=== PATIENT | male | born 1945 | race Caucasian/White ===

== ENCOUNTER 2017-02-13 22:02 | Inpatient (IN) | payer MEDICARE ==
--- NOTE | 2017-02-13 23:59 | EDM.PDOC ---
ED HPI GENERAL MEDICAL PROBLEM - General Chief Complaint: Gastrointestinal Problem Stated Complaint: RECTAL BLEED Time Seen by Provider: 02/13/17 22:32 Source of Information: Reports: Patient History Limitations: Reports: No Limitations, Other (hard of hearing, not wearing hearing aides) - History of Present Illness INITIAL COMMENTS - FREE TEXT/NARRATIVE: Lower GI bleed; this is a 71 year old male present to ER via POV. He reports had a colonscopy on SaturdayFebruary 12 in [facility], had a pre-cancerous polyp removed. He had a breakfast this morning of a western omelet and pancakes, this afternoon had a sub-sandwich. He then drove from his home in the [facility] to the cabin, after arriving at the cabin, had two blood bowel movements. He reports toilet had a large amount of blood and chunks. He was worried came to ER for evaluation. In ER, rectal exam, gladys blood surrounding anus, no internal or external hemorrhoids are noted. no bowel movements while in ER Labs are stable, hemoglobin >15, vital signs are stable. advise to admit to OBS to monitor for any further bleeding. fecal occult stool positive Mr. Cabral declines any IV meds or fluids, or saline lock. Onset: Sudden Duration: Hour(s): Location: Reports: Generalized Quality: Reports: Other (bright red bleeding x 2 this evening.) Severity: Moderate Improves with: Reports: None Worsens with: Reports: None Context: Reports: Other (colonscopy on 02/12/2017) Associated Symptoms: Reports: Other (when had stools, felt weak and sweating, now symptoms have resolved.) denies pain Pain Score (Numeric/FACES): 0 - Related Data Allergies Allergy/AdvReac Type Severity Reaction Status Date / Time No Known Allergies Allergy Verified 02/13/17 22:23 Home Meds: Home Meds Aspirin [Adult Low Dose Aspirin EC] 81 mg PO ASDIRECTED 02/13/17 [History] Cholecalciferol (Vitamin D3) [Vitamin D] 5,000 unit PO DAILY 02/13/17 [History] L.acidoph,Paracasei, B.lactis [Probiotic] 1 each PO ASDIRECTED 02/13/17 [History ] atorvaSTATin [Lipitor] 10 mg PO ASDIRECTED 02/13/17 [History] Past Medical History HEENT History: Reports: Hard of Hearing Cardiovascular History: Reports: High Cholesterol Gastrointestinal History: Reports: Hemorrhoids, Inflammatory Bowel Disease Endocrine/Metabolic History: Reports: Diabetes, Type II Oncologic (Cancer) History: Reports: Malignant Melanoma, Other (See Below) Other Oncologic History: Colonoscopy 02/12/17 biopsy at junction of cecum for precancerous cells Dermatologic History: Reports: Melanoma - Past Surgical History GI Surgical History: Reports: Colonoscopy Social & Family History - Tobacco Use Smoking Status *Q: Never Smoker - Caffeine Use Caffeine Use: Reports: Coffee, Tea - Recreational Drug Use Recreational Drug Use: No ED ROS GENERAL - Review of Systems Review Of Systems: See Below Constitutional: Reports: No Symptoms HEENT: Reports: No Symptoms Respiratory: Reports: No Symptoms Cardiovascular: Reports: No Symptoms Endocrine: Reports: No Symptoms GI/Abdominal: Reports: Bloody Stool : Reports: No Symptoms Musculoskeletal: Reports: No Symptoms Skin: Reports: No Symptoms Neurological: Reports: No Symptoms Psychiatric: Reports: No Symptoms Hematologic/Lymphatic: Reports: No Symptoms Immunologic: Reports: No Symptoms ED EXAM, GI/ABD - Physical Exam Exam: See Below Exam Limited By: No Limitations General Appearance: Alert, WD/WN, No Apparent Distress Ears: Normal External Exam, Normal Canal, Hearing Grossly Normal, Normal TMs Nose: Normal Inspection, Normal Mucosa, No Blood Throat/Mouth: Normal Inspection, Normal Lips, Normal Teeth, Normal Gums, Normal Oropharynx, Normal Voice, No Airway Compromise Head: Atraumatic, Normocephalic Neck: Normal Inspection Respiratory/Chest: No Respiratory Distress, Lungs Clear Cardiovascular: Normal Peripheral Pulses, Regular Rate, Rhythm, No Edema, No Murmur GI/Abdominal: Normal Bowel Sounds, Soft, Non-Tender, No Distention (Male) Exam: No Hernia Rectal (Males) Exam: Normal Rectal Tone, Prostate Normal, Bloody Stool, Heme + Stool Back Exam: Normal Inspection, Full Range of Motion, NT Extremities: Normal Inspection, Normal Range of Motion, Non-Tender, Normal Capillary Refill, No Pedal Edema Neurological: Alert, Oriented, CN II-XII Intact, Normal Cognition, Normal Gait, Normal Reflexes, No Motor/Sensory Deficits Psychiatric: Normal Affect, Normal Mood Skin Exam: Warm, Dry, Intact, Normal Color, No Rash Lymphatic: No Adenopathy Course - Vital Signs Last Recorded V/S: Last Vital Signs Temp 36.5 C 06/08/17 00:44 Pulse 77 02/14/17 00:44 Resp 12 02/14/17 00:44 BP 126/50 L 02/14/17 00:44 Pulse Ox 96 02/14/17 00:44 - Orders/Labs/Meds Orders: Active Orders 24 hr Category Date Time Status Pantoprazole [ProTONIX] Med 02/13/17 23:45 Active 40 mg PO DAILY Medication Orders Acetaminophen (Tylenol) 650 mg PO Q4H PRN PRN Reason: analgesia/fever Magnesium Hydroxide (Milk Of Magnesia) 30 ml PO BID PRN PRN Reason: Constipation Ondansetron HCl (Zofran Odt) 4 mg PO Q6H PRN PRN Reason: Nausea able to take PO Oxycodone HCl (Oxycodone) 5 mg PO Q4H PRN PRN Reason: Pain (moderate 4-6) Pantoprazole Sodium (Protonix) 40 mg PO DAILY NAHED Last Admin: 02/14/17 00:01 Dose: 40 mg Zolpidem Tartrate (Ambien) 5 mg PO BEDTIME PRN PRN Reason: Sleep Labs: Laboratory Tests 02/13/17 02/13/17 02/13/17 Range/Units 23:15 23:30 23:30 WBC 15.4 H (4.5-11.0) K/uL RBC 5.04 (4.30-5.90) M/uL Hgb 14.7 (12.0-15.0) g/dL Hct 45.3 (40.0-54.0) % MCV 90 (80-98) fL MCH 29 (27-31) pg MCHC 33 (32-36) % Plt Count 228 (150-400) K/uL Neut % (Auto) 81 H (36-66) % Lymph % (Auto) 10 L (24-44) % Mifflin % (Auto) 7 H (2-6) % Eos % (Auto) 1 L (2-4) % Baso % (Auto) 0 (0-1) % PT 13.0 H (9.5-12.0) sec INR 1.21 H (0.80-1.20) Sodium 143 (140-148) mmol/L Potassium 4.2 (3.6-5.2) mmol/L Chloride 108 (100-108) mmol/L Carbon Dioxide 28 (21-32) mmol/L Anion Gap 7.0 (5.0-14.0) mmol/L BUN 19 H (7-18) mg/dL Creatinine 1.1 (0.8-1.3) mg/dL Est Cr Clr Drug Dosing 65.65 mL/min Estimated GFR (MDRD) > 60 (>60) Glucose 176 H (74-106) mg/dL Calcium 8.6 (8.5-10.1) mg/dL Total Bilirubin 0.7 (0.2-1.0) mg/dL AST 21 (15-37) U/L ALT 25 (12-78) U/L Alkaline Phosphatase 95 (46-116) U/L Total Protein 6.8 (6.4-8.2) g/dL Albumin 3.7 (3.4-5.0) g/dL Globulin 3.1 (2.3-3.5) g/dL Albumin/Globulin Ratio 1.2 (1.2-2.2) Meds: Medications Generic Name Dose Route Start Last Admin Trade Name Freq PRN Reason Stop Dose Admin Acetaminophen 650 mg 02/14/17 00:44 Tylenol PO Q4H PRN analgesia/fever Magnesium Hydroxide 30 ml 02/14/17 00:44 Milk Of Magnesia PO BID PRN Constipation Ondansetron HCl 4 mg 02/14/17 00:44 Zofran Odt PO Q6H PRN Nausea able to take PO Oxycodone HCl 5 mg 02/14/17 00:44 Oxycodone PO Q4H PRN Pain (moderate 4-6) Pantoprazole Sodium 40 mg 02/13/17 23:45 02/14/17 00:01 Protonix PO 40 mg DAILY NAHED Administration Zolpidem Tartrate 5 mg 02/14/17 00:44 Ambien PO BEDTIME PRN Sleep - Re-Assessments/Exams Free Text/Narrative Re-Assessment/Exam: In ER; declines IV access, IV medication. Departure - Departure Time of Disposition: 00:30 Disposition: Refer to Observation Condition: good Clinical Impression: Lower GI bleed - Discharge Information - My Orders Last 24 Hours: My Active Orders 02/13/17 23:45 Pantoprazole [ProTONIX] 40 mg PO DAILY - Assessment/Plan Last 24 Hours: My Active Orders 02/13/17 23:45 Pantoprazole [ProTONIX] 40 mg PO DAILY
[2017-02-14] MEDS: Pantoprazole 40 MG Tab.CR PO SCH ×2 (00:01→09:20)
--- NOTE | 2017-02-14 00:27 | PCM.HP ---
H&P History of Present Illness - General Date of Service: 02/13/17 Admit Problem/Dx: Admission Diagnosis/Problem Admission Diagnosis/Problem Lower gastrointestinal hemorrhage Source of Information: Patient History Limitations: Reports: No Limitations - History of Present Illness Initial Comments - Free Text/Narative: Lower GI bleed; this is a 71 year old male present to ER via POV. He reports had a colonscopy on SaturdayFebruary 12 in [facility], had a pre-cancerous polyp removed. He had a breakfast this morning of a western omelet and pancakes, this afternoon had a sub-sandwich. He then drove from his home in the [facility] to the cabin, after arriving at the cabin, had two blood bowel movements. He reports toilet had a large amount of blood and chunks. He was worried came to ER for evaluation. In ER, rectal exam, gladys blood surrounding anus, bloody discharge on underwear. no internal or external hemorrhoids are noted. no bowel movements while in ER Labs are stable, hemoglobin >15, vital signs are stable. fecal occult stool positive plan ; will admit to Observation to monitor for any further bleeding. patient agrees to admission, declines any IV meds or fluids, or saline lock. Onset of Symptoms: Reports: Sudden (this evening.) Duration of Symptoms: Reports: Hour(s): Location: Reports: Generalized Quality: Reports: Other (bloody stool x 2) Improves with: Reports: None Worsens with: Reports: None Context: Reports: Other (colonscopy on Saturday, February 12, 2017 ) Associated Symptoms: Reports: No Other Symptoms denies pain Pain Score (Numeric/FACES): 0 - Related Data Allergies/Adverse Reactions: Allergies Allergy/AdvReac Type Severity Reaction Status Date / Time No Known Allergies Allergy Verified 02/13/17 22:23 Home Medications: Home Meds Aspirin [Adult Low Dose Aspirin EC] 81 mg PO ASDIRECTED 02/13/17 [History] Cholecalciferol (Vitamin D3) [Vitamin D] 5,000 unit PO DAILY 02/13/17 [History] L.acidoph,Paracasei, B.lactis [Probiotic] 1 each PO ASDIRECTED 02/13/17 [History ] atorvaSTATin [Lipitor] 10 mg PO ASDIRECTED 02/13/17 [History] Past Medical History HEENT History: Reports: Hard of Hearing Cardiovascular History: Reports: High Cholesterol Gastrointestinal History: Reports: Hemorrhoids, Inflammatory Bowel Disease Endocrine/Metabolic History: Reports: Diabetes, Type II Oncologic (Cancer) History: Reports: Malignant Melanoma, Other (See Below) Other Oncologic History: Colonoscopy 02/12/17 biopsy at junction of cecum for precancerous cells Dermatologic History: Reports: Melanoma - Past Surgical History GI Surgical History: Reports: Colonoscopy Social & Family History - Tobacco Use Smoking Status *Q: Never Smoker - Caffeine Use Caffeine Use: Reports: Coffee, Tea - Recreational Drug Use Recreational Drug Use: No H&P Review of Systems - Review of Systems: Review Of Systems: See Below General: Reports: No Symptoms HEENT: Reports: No Symptoms Pulmonary: Reports: No Symptoms Cardiovascular: Reports: No Symptoms Gastrointestinal: Reports: Bloody Stool Genitourinary: Reports: No Symptoms Musculoskeletal: Reports: No Symptoms Skin: Reports: No Symptoms Psychiatric: Reports: No Symptoms Neurological: Reports: No Symptoms Hematologic/Lymphatic: Reports: No Symptoms Immunologic: Reports: No Symptoms Exam - Exam Exam: See Below - Vital Signs Vital Signs: Last Vital Signs Temp 35.6 C 02/13/17 22:25 Pulse 79 02/13/17 22:25 Resp 16 02/13/17 22:25 BP 139/68 02/13/17 22:25 Pulse Ox 96 02/13/17 22:25 Weight: 97.522 kg - Exam General: Alert, Oriented, 4 HEENT: PERRLA, Hearing Intact, Mucosa Moist & [place], Nares Patent, Normal Nasal Septum, Posterior Pharynx Clear, Conjunctiva Clear, EOMI, EACs Clear, TMs Clear Neck: Supple, Trachea Midline, 2 Lungs: Clear to Auscultation, Normal Respiratory Effort Cardiovascular: Regular Rate, Regular Rhythm Abdomen: Normal Bowel Sounds, Soft, Pelvis Stable (Male) Exam: No Hernia, Normal Inspection Rectal (Males) Exam: Normal Rectal Tone, Bloody Stool (noted to underwear and rectum), Heme + Stool Back Exam: Normal Inspection, Full Range of Motion, NT Extremities: Normal Inspection Skin: Warm, Dry, Intact Neurological: Cranial Nerves Intact, Reflexes Equal Bilateral Neuro Extensive - Mental Status: Alert, Oriented x3, Normal Mood/Affect, Normal Cognition Neuro Extensive - Motor, Sensory, Reflexes: CN II-XII Intact, Normal Gait, Normal Reflexes Psychiatric: Alert, Normal Affect, Normal Mood - Patient Data Lab Results last 24 hrs: Laboratory Results - last 24 hr 02/13/17 02/13/17 02/13/17 Range/Units 23:15 23:30 23:30 WBC 15.4 H (4.5-11.0) K/uL RBC 5.04 (4.30-5.90) M/uL Hgb 14.7 (12.0-15.0) g/dL Hct 45.3 (40.0-54.0) % MCV 90 (80-98) fL MCH 29 (27-31) pg MCHC 33 (32-36) % Plt Count 228 (150-400) K/uL Neut % (Auto) 81 H (36-66) % Lymph % (Auto) 10 L (24-44) % Garrett % (Auto) 7 H (2-6) % Eos % (Auto) 1 L (2-4) % Baso % (Auto) 0 (0-1) % PT 13.0 H (9.5-12.0) sec INR 1.21 H (0.80-1.20) Sodium 143 (140-148) mmol/L Potassium 4.2 (3.6-5.2) mmol/L Chloride 108 (100-108) mmol/L Carbon Dioxide 28 (21-32) mmol/L Anion Gap 7.0 (5.0-14.0) mmol/L BUN 19 H (7-18) mg/dL Creatinine 1.1 (0.8-1.3) mg/dL Est Cr Clr Drug Dosing 65.65 mL/min Estimated GFR (MDRD) > 60 (>60) Glucose 176 H (74-106) mg/dL Calcium 8.6 (8.5-10.1) mg/dL Total Bilirubin 0.7 (0.2-1.0) mg/dL AST 21 (15-37) U/L ALT 25 (12-78) U/L Alkaline Phosphatase 95 (46-116) U/L Total Protein 6.8 (6.4-8.2) g/dL Albumin 3.7 (3.4-5.0) g/dL Globulin 3.1 (2.3-3.5) g/dL Albumin/Globulin Ratio 1.2 (1.2-2.2) Result Diagrams: 02/13/17 23:15 02/13/17 23:30 Home Results last 24 hrs: Microbiology 02/13/17 23:54 Stool Occult Blood (HOME) - Final Stool / Feces *Q Meaningful Use (ADM) - VTE *Q VTE Criteria *Q: - Stroke *Q Stroke Criteria *Q: - AMI *Q AMI Criteria *Q: - Problem List (1) History of colonoscopy with polypectomy SNOMED Code(s): 320886074, [id number] ICD Code: Z98.890 - OTHER SPECIFIED POSTPROCEDURAL STATES; Z86.010 - PERSONAL HISTORY OF COLONIC POLYPS Status: Acute Priority: High Current Visit: Yes (2) Lower GI bleed SNOMED Code(s): 37476525 ICD Code: K92.2 - GASTROINTESTINAL HEMORRHAGE, UNSPECIFIED Status: Acute Priority: High Current Visit: Yes Problem List Initiated/Reviewed/Updated: Yes Orders Last 24hrs: Active Orders 24 hr Category Date Time Status Patient Status Manage Transfer [TRANSFER] Routine ADT 02/13/17 23:59 Ordered Pantoprazole [ProTONIX] Med 02/13/17 23:45 Active 40 mg PO DAILY Resuscitation Status Routine Resus Stat 02/14/17 00:11 Ordered Medication Orders Pantoprazole Sodium (Protonix) 40 mg PO DAILY NAHED Last Admin: 02/14/17 00:01 Dose: 40 mg Assessment/Plan Comment:: ASSESSMENT AND PLAN Lower GI bleed; this is a 71 year old male present to ER via POV. He reports had a colonscopy on SaturdayFebruary 12 in [facility], had a pre-cancerous polyp removed. He had a breakfast this morning of a western omelet and pancakes , this afternoon had a sub-sandwich. He then drove from his home in the [facility] to the cabin ([place] [address] after arriving at the cabin, had two blood bowel movements. He reports toilet had a large amount of blood and chunks. He was worried came to ER for evaluation. In ER, rectal exam, gladys blood surrounding anus and blood streaks on underwear , no internal or external hemorrhoids are noted. no bowel movements while in ER Labs are stable, hemoglobin >15, vital signs are stable. fecal occult stool positive plan ; will admit to Observation to monitor for any further bleeding. patient agrees to admission, declines any IV meds or fluids, or saline lock. LOWER GI BLEED -Decline IV access or medications -Protonix 40mg po now -monitor for any further bleeding -I and O -consult to Dr. Suman Nazario Maintenance issues - - DVT prophylaxis - Lovenox contraindicated with GI bleed - GI prophylaxis - Protonix 40mg po - Nutrition - full liquid diet - Talavera catheter - not indicated CODE STATUS - DNR/DNI Admission justification - I reasonably expect the patient will not require inpatient services that span a period time over 2 midnights. I reasonably expect this patient to be discharged or transferred within 96 hours after admission to the [facility]. Disposition - anticipate discharge home. Primary care physician - [facility] Hospitalist: Ulysses Cardoso M.D.
[2017-02-14] MEDS ORDERED: Ondansetron 4 MG Tab.DIS PO PRN (00:44)
[2017-02-14] MEDS ORDERED: oxyCODONE 5 MG Tab PO PRN (00:44)
[2017-02-14] MEDS ORDERED: Zolpidem 5 MG Tab PO PRN (00:44)
[2017-02-14] MEDS ORDERED: Acetaminophen 325 MG Tab PO PRN (00:44)
[2017-02-14] MEDS ORDERED: Magnesium Hydroxide 400 MG/5 ML Susp 30 ML Cup PO PRN (00:44)
[2017-02-14] MEDS ORDERED: Sodium Chloride 0.9% 1,000 ML IV ONE (04:55)
[2017-02-14] MEDS ORDERED: Lactated Ringers 1,000 ML IV SCH (05:00)
[2017-02-14] MEDS ORDERED: Pantoprazole 80 MG in Sodium Chloride 0.9% 100 ML IV SCH (05:00)
[2017-02-14] MEDS: Sodium Chloride 0.9% 1,000 ML IV SCH ×3 (05:02→18:01)
[2017-02-14] MEDS ORDERED: Sodium Chloride 0.9% 10 ML Syringe FLUSH PRN (05:03)
--- NOTE | 2017-02-14 05:23 | PCM.SN ---
- Free Text/Narrative Note: time 04:25 call from 2 [facility]; Mr. Cabral got up to use bedside commode , he had a large blood stool with clots. He had syncope event on the commode. He was transferred by to bed. He was noted to be unresponsive. diaphoretic. blood pressure 98/58. at 0430 was 88/56. o; very lethergic, response to voice, skin; cool and clammy, pallor noted. stool noted >1000 of dark red blood, few clots a; active GI bleed. plan; -placed in Trendelenburg, IV access obtain in both forearm. -IV fluids LR on pressure bag, Normal Saline wide open. -Labs ordered CBC and type and cross for 4 units PRBC, -order to be transfer to ICU. -Dr. Cardoso, ICU Hospitalist advised of patient. -call Dr. Nazario after Mr. Cabral is in ICU
[2017-02-14] MEDS ORDERED: Coagulation Factor VIIa Recombinant (per MCG) 2 MG Vial IVPUSH ONE (05:39)
--- NOTE | 2017-02-14 08:46 | PCM.PN ---
- General Info Date of Service: 02/14/17 Functional Status: Reports: pain controlled, urinating - Review of Systems General: Reports: Weakness Gastrointestinal: Reports: Hematochezia - Patient Data Vitals - most recent: Last Vital Signs Temp 36.3 C 02/14/17 08:00 Pulse 76 02/14/17 08:00 Resp 15 02/14/17 08:00 BP 112/39 L 02/14/17 08:00 Pulse Ox 100 02/14/17 08:00 Weight - most recent: 97.522 kg I&O - last 24 hours: Intake & Output 02/13/17 02/14/17 02/14/17 22:59 06:59 14:59 Output Total 550 Balance -550 Lab Results last 24 hrs: Laboratory Results - last 24 hr 02/14/17 Range/Units 06:30 Hgb 10.5 L D (12.0-15.0) g/dL Hct 32.6 L (40.0-54.0) % Med Orders - Current: Current Medications Acetaminophen (Tylenol) 650 mg PO Q4H PRN PRN Reason: analgesia/fever Sodium Chloride (Normal Saline) 1,000 mls @ 150 mls/hr IV ASDIRECTED [facility] Last Admin: 02/14/17 05:02 Dose: 150 mls/hr Lactated Ringer's (Ringers, Lactated) 1,000 mls @ 999 mls/hr IV ASDIRECTED [facility] Last Admin: 02/14/17 05:03 Dose: 999 mls/hr Magnesium Hydroxide (Milk Of Magnesia) 30 ml PO BID PRN PRN Reason: Constipation Ondansetron HCl (Zofran Odt) 4 mg PO Q6H PRN PRN Reason: Nausea able to take PO Oxycodone HCl (Oxycodone) 5 mg PO Q4H PRN PRN Reason: Pain (moderate 4-6) Pantoprazole Sodium (Protonix) 40 mg PO DAILY [facility] Last Admin: 02/14/17 00:01 Dose: 40 mg Sodium Chloride (Saline Flush) 10 ml FLUSH ASDIRECTED PRN PRN Reason: Keep Vein Open Zolpidem Tartrate (Ambien) 5 mg PO BEDTIME PRN PRN Reason: Sleep Discontinued Medications Factor VIIa (Recombinant) (Novoseven Rt) 2,000 mcg IVPUSH ONETIME ONE Stop: 02/14/17 05:40 Last Admin: 02/14/17 05:59 Dose: 2,000 mcg Sodium Chloride (Normal Saline) 1,000 mls @ 999 mls/hr IV .BOLUS ONE Stop: 02/14/17 05:55 Last Admin: 02/14/17 04:59 Dose: 999 mls/hr Pantoprazole Sodium 80 mg/ (Sodium Chloride) 100 mls @ 200 mls/hr IV .BOLUS NAHED Last Admin: 02/14/17 05:10 Dose: 200 mls/hr - Exam Quality Assessment: supplemental oxygen General: alert, oriented, cooperative, no acute distress Neck: supple Lungs: Normal respiratory effort Cardiovascular: Regular Rate, Regular Rhythm Abdomen: bowel sounds present, soft, no tenderness, no distension Extremities: no edema, no cyanosis Skin: warm, dry Psy/Mental Status: alert, normal affect - Problem List Review Problem List Initiated/Reviewed/Updated: Yes - My Orders Last 24 Hours: My Active Orders 02/14/17 08:40 FRESH FROZEN PLASMA [BBK] Routine Transfuse Fresh Frozen Plasma [COMM] Routine - Plan Plan:: ASSESSMENT AND PLAN ACUTE LOWER GI HEMORRHAGE WITH ACUTE BLOOD LOSS ANEMIA - recent polypectomy near ileocecal valve. Acute hemorrhage with hemodynamic instability. Last bloody BM at about 0700. Has received factor VII. Hgb down from 14 to 10. BP stable at this time. -IV fluids -transfuse 2 untis FFP -monitor for any further bleeding -I and O -consult to Dr. Suman Nazario Maintenance issues - - DVT prophylaxis - enoxaparin contraindicated with GI bleed - GI prophylaxis - pantoprazole 40mg po - Nutrition - full liquid diet - Talavera catheter - not indicated Disposition - anticipate discharge home after the hospital stay Hospitalist: Ulysses Cardoso M.D.
--- NOTE | 2017-02-14 11:27 | CONS ---
DATE OF SERVICE: 02/14/2017 REFERRING PHYSICIAN: CONSULTING PHYSICIAN: Marjan Romero PA-C HISTORY: Rob was admitted at [facility] yesterday. He is a 71-year-old male who had a colonoscopy with a precancerous polyp removed on 02/12/2017. He lives in [place], [place]. He states that he drove up to his [place] resort home [place] and he started having bright red blood from his rectum. He came into ER and was admitted to the floor. He did become quite weak and dizzy. He was transferred to ICU. He was given two doses of factor VII. He states every time he gets up and goes to the bathroom, now he passes quite a bit of blood. Denies any abdominal pain. REVIEW OF SYSTEMS: CONSTITUTIONAL: Denies any fever, chills, night sweats, or fatigue. HEENT: Hard of hearing. CARDIOVASCULAR: No chest pain, murmur, fast irregular heart beat. LUNGS: No shortness of breath or cough. GI: No nausea, vomiting. He is not sure if he has diarrhea or not. He is passing quite a bit of red blood. MUSCULOSKELETAL: No joint pain. SKIN: Negative for any rash or changes in moles or birthmarks, NEURO: No headaches. States the dizziness and unsteadiness has gone away. PSYCHIATRIC: No anxiety, depression or insomnia. ENDOCRINE: Negative for fatigue, excessive thirst or urination. Remainder of review of systems negative for any pertinent positives or negatives. CURRENT MEDICATION: 1. Adult low-dose aspirin 81 mg daily. 2. Vitamin D3 5000 international units daily. 3. Probiotic one oral as directed. 4. Lipitor 10 mg p.o. nightly. ALLERGIES: NO KNOWN MEDICAL ALLERGIES. PAST MEDICAL HISTORY: Hard of hearing, hypercholesterolemia, hemorrhoids, inflammatory bowel disease, diabetes type 2, malignant melanoma. SOCIAL HISTORY: , in November will be 48 years. Employment, retired. 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 Does not smoke. Alcohol, drinks two glasses of wine per week. No carbonation and drinks 3-5 cups of coffee with [id number] in daily. Four children, ten grandchildren. PHYSICAL EXAMINATION: GENERAL: Rob is a pleasant 71-year-old male. VITAL SIGNS: Height 6 feet 0.05 inches, weight is 205 pounds. BMI 27. TPR 97.2, 76, 13. Blood pressure 120/56. HEENT: Negative. NECK: Supple. HEART: Regular rate and rhythm. LUNGS: Clear. ABDOMEN: Soft, nontender. EXTREMITIES: Without peripheral edema. NEUROLOGIC: Cranial nerves 2-12 intact. PSYCHIATRIC: Mood and affect appropriate. SKIN: Without rash. ASSESSMENT: 1. SP colonoscopy with precancerous polypectomy on 02/12/2017 in [place], [place]. 2. Lower gastrointestinal bleed. 3. Diabetes type 2 controlled. 4. Hypercholesterolemia. 5. History of melanoma. PLAN: See EMR for current orders. Check CBC, CMP, mag, phos, INR, PT, PTT in a.m. Thank you for this consultation. Marjan Romero PA-C /[id number]
[2017-02-15] MEDS: Sodium Chloride 0.9% 1,000 ML IV SCH ×2 (00:38→07:13)
[2017-02-15] MEDS: Pantoprazole 40 MG Tab.CR PO SCH (08:53)
[2017-02-15] MEDS ORDERED: Potassium Chloride 20 MEQ Tab.ER PO ONE ×2 (08:57→09:30)
--- NOTE | 2017-02-15 08:59 | PCM.PN ---
- General Info Date of Service: 02/15/17 Functional Status: Reports: pain controlled, tolerating diet, ambulating - Review of Systems General: Denies: Weakness Gastrointestinal: Denies: Abdominal pain Systems Review Comment:: No acute events overnight. No recurrence of bleeding. No abdominal pain. Tolerating full liquids this morning. No fevers. Hgb has seemed to level off in the low 8's. No nausea. Vitals have been stable. - Patient Data Vitals - most recent: Last Vital Signs Temp 36.7 C 02/15/17 08:00 Pulse 76 02/15/17 08:00 Resp 20 02/15/17 08:00 BP 120/68 02/15/17 08:00 Pulse Ox 93 L 02/15/17 08:00 Weight - most recent: 93.168 kg I&O - last 24 hours: Intake & Output 02/14/17 02/15/17 02/15/17 22:59 06:59 14:59 Intake Total 1987 1873 Output Total 525 775 Balance 1462 1098 Lab Results last 24 hrs: Laboratory Results - last 24 hr 02/14/17 02/14/17 02/15/17 Range/Units 11:59 18:00 04:20 WBC 6.8 (4.5-11.0) K/uL RBC 2.83 L (4.30-5.90) M/uL Hgb 9.0 L 8.7 L 8.3 L (12.0-15.0) g/dL Hct 28.1 L 27.2 L 26.0 L (40.0-54.0) % MCV 92 (80-98) fL MCH 29 (27-31) pg MCHC 32 (32-36) % Plt Count 167 (150-400) K/uL PT (9.5-12.0) sec INR (0.80-1.20) APTT (27.0-36.0) sec Sodium (140-148) mmol/L Potassium (3.6-5.2) mmol/L Chloride (100-108) mmol/L Carbon Dioxide (21-32) mmol/L Anion Gap (5.0-14.0) mmol/L BUN (7-18) mg/dL Creatinine (0.8-1.3) mg/dL Est Cr Clr Drug Dosing mL/min Estimated GFR (MDRD) (>60) Glucose (74-106) mg/dL Calcium (8.5-10.1) mg/dL Phosphorus (2.5-4.9) mg/dL Magnesium (1.8-2.4) mg/dL Total Bilirubin (0.2-1.0) mg/dL AST (15-37) U/L ALT (12-78) U/L Alkaline Phosphatase (46-116) U/L Total Protein (6.4-8.2) g/dL Albumin (3.4-5.0) g/dL Globulin (2.3-3.5) g/dL Albumin/Globulin Ratio (1.2-2.2) 02/15/17 02/15/17 Range/Units 04:20 04:20 WBC (4.5-11.0) K/uL RBC (4.30-5.90) M/uL Hgb (12.0-15.0) g/dL Hct (40.0-54.0) % MCV (80-98) fL MCH (27-31) pg MCHC (32-36) % Plt Count (150-400) K/uL PT 12.6 H (9.5-12.0) sec INR 1.17 (0.80-1.20) APTT 24.5 L (27.0-36.0) sec Sodium 144 (140-148) mmol/L Potassium 3.5 L (3.6-5.2) mmol/L Chloride 112 H (100-108) mmol/L Carbon Dioxide 27 (21-32) mmol/L Anion Gap 8.5 (5.0-14.0) mmol/L BUN 11 (7-18) mg/dL Creatinine 0.8 (0.8-1.3) mg/dL Est Cr Clr Drug Dosing 90.39 mL/min Estimated GFR (MDRD) > 60 (>60) Glucose 109 H (74-106) mg/dL Calcium 7.7 L (8.5-10.1) mg/dL Phosphorus 2.4 L (2.5-4.9) mg/dL Magnesium 1.8 (1.8-2.4) mg/dL Total Bilirubin 0.8 (0.2-1.0) mg/dL AST 15 (15-37) U/L ALT 17 (12-78) U/L Alkaline Phosphatase 66 (46-116) U/L Total Protein 5.0 L (6.4-8.2) g/dL Albumin 2.7 L (3.4-5.0) g/dL Globulin 2.3 (2.3-3.5) g/dL Albumin/Globulin Ratio 1.2 (1.2-2.2) Med Orders - Current: Current Medications Acetaminophen (Tylenol) 650 mg PO Q4H PRN PRN Reason: analgesia/fever Magnesium Hydroxide (Milk Of Magnesia) 30 ml PO BID PRN PRN Reason: Constipation Ondansetron HCl (Zofran Odt) 4 mg PO Q6H PRN PRN Reason: Nausea able to take PO Oxycodone HCl (Oxycodone) 5 mg PO Q4H PRN PRN Reason: Pain (moderate 4-6) Pantoprazole Sodium (Protonix) 40 mg PO DAILY [facility] Last Admin: 02/15/17 08:53 Dose: 40 mg Sodium Chloride (Saline Flush) 10 ml FLUSH ASDIRECTED PRN PRN Reason: Keep Vein Open Zolpidem Tartrate (Ambien) 5 mg PO BEDTIME PRN PRN Reason: Sleep Discontinued Medications Factor VIIa (Recombinant) (Novoseven Rt) 2,000 mcg IVPUSH ONETIME ONE Stop: 02/14/17 05:40 Last Admin: 02/14/17 05:59 Dose: 2,000 mcg Sodium Chloride (Normal Saline) 1,000 mls @ 999 mls/hr IV .BOLUS ONE Stop: 02/14/17 05:55 Last Admin: 02/14/17 04:59 Dose: 999 mls/hr Sodium Chloride (Normal Saline) 1,000 mls @ 150 mls/hr IV ASDIRECTED [facility] Last Admin: 02/15/17 07:13 Dose: 150 mls/hr Lactated Ringer's (Ringers, Lactated) 1,000 mls @ 999 mls/hr IV ASDIRECTED [facility] Last Admin: 02/14/17 05:03 Dose: 999 mls/hr Pantoprazole Sodium 80 mg/ (Sodium Chloride) 100 mls @ 200 mls/hr IV .BOLUS [facility] Last Admin: 02/14/17 05:10 Dose: 200 mls/hr - Exam Quality Assessment: No: supplemental oxygen General: alert, oriented, cooperative, no acute distress Neck: supple, trachea midline Lungs: Normal respiratory effort. No: Wheezing Cardiovascular: Regular Rate, Regular Rhythm Abdomen: soft, no distension Extremities: no edema, no cyanosis Skin: warm, dry Psy/Mental Status: alert, normal affect - Problem List Review Problem List Initiated/Reviewed/Updated: Yes - My Orders Last 24 Hours: My Active Orders 02/14/17 08:40 Transfuse Fresh Frozen Plasma [COMM] Routine 02/15/17 08:55 Convert IV to Saline Lock [OM.PC] Routine 02/15/17 08:56 Up ad Sandee [RC] ASDIRECTED 02/15/17 08:57 Transfer Patient (Change bed) [ADT] Routine Potassium Chloride [Klor-Con M20] 40 meq PO ONETIME ONE 02/16/17 05:00 BASIC METABOLIC PANEL,BMP [CHEM] Timed CBC W/O DIFF,HEMOGRAM [HEME] Timed (1) - Plan Plan:: ASSESSMENT AND PLAN ACUTE LOWER GI HEMORRHAGE WITH ACUTE BLOOD LOSS ANEMIA - recent polypectomy near ileocecal valve. Vitals have been stable. No recurrence of bleeding. Tolerating diet this morning. -Saline lock IV -monitor for any further bleeding -I and O -advance diet Maintenance issues - - DVT prophylaxis - enoxaparin contraindicated with GI bleed - GI prophylaxis - pantoprazole 40mg po - Nutrition - full liquid diet, advance at suppertime if stable - Talavera catheter - not indicated Disposition - anticipate discharge home after the hospital stay, probably tomorrow if stable overnight Hospitalist: Ulysses Cardoso M.D.
--- NOTE | 2017-02-15 10:21 | PN ---
DATE OF SERVICE: 02/15/2017 SUBJECTIVE: Rob's rectal bleeding has stopped. Hemoglobin this morning was 8.3. Continues to deny pain. Oral intake was 614. REVIEW OF SYSTEMS: HEENT: Negative. NECK: Negative. CHEST: No chest pain. Fast irregular heart beat. LUNGS: No shortness of breath. ABDOMEN: Has had 550 mL of stool. GENITOURINARY: Negative. EXTREMITIES: No joint pain or swelling. NEUROLOGIC: Negative for headache, dizziness, loss of coordination. Remainder of review of systems negative for any pertinent positives and negatives. OBJECTIVE: GENERAL: Rob Cabral is a 71-year-old male, alert, orientated. VITAL SIGNS: TPR 98.1, 76, 20. Blood pressure 120/68. HEENT: Negative. NECK: Supple. HEART: Regular rate and rhythm. LUNGS: Clear. ABDOMEN: Soft, nontender. EXTREMITIES: Without peripheral edema. ASSESSMENT: 1. SP colonoscopy with precancerous polypectomy on 02/12/2017 in [place], [place]. 2. Lower gastrointestinal bleed. 3. Diabetes type 2, controlled. 4. Hypercholesterolemia. 5. History of melanoma. PLAN: Continue orders per EMR. We will evaluate p.r.n. or in a.m. Marjan Romero PA-C /[id number]
[2017-02-16 05:04] VITALS: BP 124/58
--- NOTE | 2017-02-16 09:08 | PCM.DCSUM1 ---
Discharge Summary - Hospital Course Brief History: 71-year-old male with recent polypectomy who presented with acute gastrointestinal hemorrhage. He was admitted for management. - Discharge Data Discharge Date: 02/16/17 Discharge Disposition: Home, Self-Care 01 Condition: Good - Discharge Diagnosis/Problem(s) (1) Acute lower GI hemorrhage SNOMED Code(s): 54621293 ICD Code: K92.2 - GASTROINTESTINAL HEMORRHAGE, UNSPECIFIED Status: Acute (2) Acute blood loss anemia SNOMED Code(s): 083742065 ICD Code: D62 - ACUTE POSTHEMORRHAGIC ANEMIA Status: Acute (3) History of colonoscopy with polypectomy SNOMED Code(s): 556651569, 498589261 ICD Code: Z98.890 - OTHER SPECIFIED POSTPROCEDURAL STATES; Z86.010 - PERSONAL HISTORY OF COLONIC POLYPS Status: Acute Priority: High - Patient Summary/Data Consults: Dr. Nazario - surgical management with acute lower gastrointestinal hemorrhage after polypectomy Hospital Course: Rob presented to the emergency room the day after having a polypectomy with acute lower gastrointestinal hemorrhage. He had several large bloody bowel movements prior to presentation and had presyncopal symptoms. Workup in the emergency room was reassuring with stable vitals and normal hemoglobin. He was admitted to the hospital for observation and overnight had an additional large bloody bowel movement and did have an episode of syncope and brief episode with minimal responsiveness. He was transferred to the intensive care unit following this episode. He received aggressive IV fluids overnight. He also received a dose of factor VII following the large bloody bowel movement that led to a decreased level of consciousness. The morning after admission he also received 2 units of fresh frozen plasma. He did not have additional evidence for bleeding after this. His hemoglobin reached a loren of 8.3. His blood pressures and heart rate have all been stable. He does not have any abdominal pain. He has not had any bowel movements since the morning of admission. He has tolerated the diet. I suspect that the bleeding is complete at this time. He has been stable for 48 hours with no significant bleeding or difficulties. I believe he is safe for outpatient management at this point. He will hold his aspirin for 2 additional days. He will be on a soft and bland diet for the next week or so. He will avoid strenuous activities for the next few days. I did recommend an iron supplement to be taken once daily for 1 month. He has an appointment scheduled with his primary care provider in 3 weeks and will attend that visit unless he has difficulty between now and then. He will be discharged home with his . - Patient Instructions Diet: Regular Diet as Tolerated Diet, Other: Soft and bland foods for the next week Activity: As Tolerated, Rest and Relax Today Driving: May Drive Today Showering/Bathing: May Shower Notify Provider of: Fever, Increased Pain, Nausea and/or Vomiting Other/Special Instructions: 1. You were in the hospital for management of an acute lower gastrointestinal hemorrhage, likely from your recent polypectomy site. The bleeding has stopped after he received a dose of activated factor VII and 2 units of fresh frozen plasma. I would recommend that you eat a soft and bland diet for the next week to allow this area more time to heal. I would recommend that you not take your aspirin for at least a couple of more days but should be safe to restart at that time. 2. Please take an iron supplement once daily with a meal. Taking this medication with food can help avoid gastrointestinal upset. 3. Please seek medical attention if you develop fever greater than 101, have sudden onset of severe abdominal pain or the bleeding returns. - Discharge Plan Prescriptions/Med Rec: Ferrous Sulfate 325 mg PO DAILY #30 tablet Home Medications: Home Meds Aspirin [Adult Low Dose Aspirin EC] 81 mg PO ASDIRECTED 02/13/17 [History] Cholecalciferol (Vitamin D3) [Vitamin D] 5,000 unit PO DAILY 02/13/17 [History] L.acidoph,Paracasei, B.lactis [Probiotic] 1 each PO ASDIRECTED 02/13/17 [History ] atorvaSTATin [Lipitor] 10 mg PO ASDIRECTED 02/13/17 [History] Ferrous Sulfate 325 mg PO DAILY #30 tablet 02/16/17 [Rx] Patient Handouts: Iron-Rich Diet, Gastrointestinal Bleeding Referrals: PCP,None [Primary Care Provider] - (Follow-up with your regular doctor as scheduled unless you have difficulty with fatigue or recurrent bleeding between now and then) - Discharge Summary/Plan Comment DC Time >30 min.: No (25) - Patient Data Vitals - Most Recent: Last Vital Signs Temp 37 C 02/16/17 04:00 Pulse 69 02/16/17 04:00 Resp 14 02/16/17 04:00 BP 124/58 L 02/16/17 04:00 Pulse Ox 97 02/16/17 04:00 Weight - Most Recent: 93.168 kg Lab Results - Last 24 hrs: Laboratory Results - last 24 hr 02/16/17 02/16/17 Range/Units 05:00 05:44 WBC 6.8 (4.5-11.0) K/uL RBC 3.04 L (4.30-5.90) M/uL Hgb 8.8 L (12.0-15.0) g/dL Hct 28.0 L (40.0-54.0) % MCV 92 (80-98) fL MCH 29 (27-31) pg MCHC 31 L (32-36) % Plt Count 182 (150-400) K/uL Sodium 145 (140-148) mmol/L Potassium 3.7 (3.6-5.2) mmol/L Chloride 109 H (100-108) mmol/L Carbon Dioxide 29 (21-32) mmol/L Anion Gap 10.7 (5.0-14.0) mmol/L BUN 8 (7-18) mg/dL Creatinine 0.9 (0.8-1.3) mg/dL Est Cr Clr Drug Dosing 80.35 mL/min Estimated GFR (MDRD) > 60 (>60) Glucose 126 H (74-106) mg/dL Calcium 8.2 L (8.5-10.1) mg/dL Med Orders - Current: Current Medications Acetaminophen (Tylenol) 650 mg PO Q4H PRN PRN Reason: analgesia/fever Magnesium Hydroxide (Milk Of Magnesia) 30 ml PO BID PRN PRN Reason: Constipation Ondansetron HCl (Zofran Odt) 4 mg PO Q6H PRN PRN Reason: Nausea able to take PO Oxycodone HCl (Oxycodone) 5 mg PO Q4H PRN PRN Reason: Pain (moderate 4-6) Pantoprazole Sodium (Protonix) 40 mg PO DAILY [facility] Last Admin: 02/15/17 08:53 Dose: 40 mg Sodium Chloride (Saline Flush) 10 ml FLUSH ASDIRECTED PRN PRN Reason: Keep Vein Open Zolpidem Tartrate (Ambien) 5 mg PO BEDTIME PRN PRN Reason: Sleep Discontinued Medications Factor VIIa (Recombinant) (Novoseven Rt) 2,000 mcg IVPUSH ONETIME ONE Stop: 02/14/17 05:40 Last Admin: 02/14/17 05:59 Dose: 2,000 mcg Sodium Chloride (Normal Saline) 1,000 mls @ 999 mls/hr IV .BOLUS ONE Stop: 02/14/17 05:55 Last Admin: 02/14/17 04:59 Dose: 999 mls/hr Sodium Chloride (Normal Saline) 1,000 mls @ 150 mls/hr IV ASDIRECTED [facility] Last Admin: 02/15/17 07:13 Dose: 150 mls/hr Lactated Ringer's (Ringers, Lactated) 1,000 mls @ 999 mls/hr IV ASDIRECTED [facility] Last Admin: 02/14/17 05:03 Dose: 999 mls/hr Pantoprazole Sodium 80 mg/ (Sodium Chloride) 100 mls @ 200 mls/hr IV .BOLUS [facility] Last Admin: 02/14/17 05:10 Dose: 200 mls/hr Potassium Chloride (Klor-Con M20) 40 meq PO ONETIME ONE Stop: 02/15/17 08:58 Last Admin: 02/15/17 10:44 Dose: Not Given Potassium Chloride (Klor-Con M20) 40 meq PO ONETIME ONE Stop: 02/15/17 09:31 Last Admin: 02/15/17 10:47 Dose: 40 meq *Q Meaningful Use (DIS) - VTE *Q VTE Criteria *Q: - Stroke *Q Stroke Criteria *Q: - AMI *Q AMI Criteria *Q:
--- NOTE | 2017-02-16 11:46 | PN ---
DATE OF SERVICE: 02/16/2017 The patient has been afebrile with stable vital signs. His hemoglobin came up spontaneously somewhat overnight, so it would appear he is not doing any more bleeding. He can likely be discharged home today or tomorrow per Dr. Cardoso. Suman Nazario MD /[id number]
== END 2017-02-16 09:41 | disposition home or self-care (01) | DRG 378 ==
LOC: JP.ED 22:02 → JP.MS 23:59 → JP.ICU 02-14 04:30 → OBSVTOIN 02-14 05:07
PROVIDERS: ADMIT Internal Medicine; ATTEND Internal Medicine
PROC: 30233K1 Transfusion of Nonautologous Frozen Plasma into Peripheral Vein, Percutaneous Approach (ICD-10-PCS; principal; 2017-02-14)
DX: K92.2 Gastrointestinal hemorrhage, unspecified (principal); D62 Acute posthemorrhagic anemia; Z98.890 Other specified postprocedural states; E11.9 Type 2 diabetes mellitus without complications; K92.1 Melena; R55 Syncope and collapse; Z85.820 Personal history of malignant melanoma of skin; E78.00 Pure hypercholesterolemia, unspecified; H91.90 Unspecified hearing loss, unspecified ear; Z79.82 Long term (current) use of aspirin
CPT/HCPCS: 36415; 80048; 80053; 82272; 82962; 85025 ×2; 85610; 86850; 86900; 86901; 86920; 86922; 99285; A9270; J7040 ×2; J7120; 36430; 83735; 84100; 85014; 85018; 85027; 85730; C9113; G0378; J7030; J7189; P9017

== ENCOUNTER 2024-03-11 15:49 | Emergency (ER) | payer MEDICARE ==
[2024-03-11 15:59] VITALS: BP 175/82; PULSE 65
[2024-03-11] MEDS: Ondansetron 4 MG/2 ML SDV IVPUSH ONE (17:26)
[2024-03-11 17:27] LABS: BASOPHILS ABSOLUTE AUTO 0.03 K/uL (0.00-0.10); BASOPHILS PERCENT AUTO 0.3 % (0.1-1.3); EOSINOPHILS ABSOLUTE AUTO 0.07 K/uL (0.00-0.40); EOSINOPHILS PERCENT AUTO 0.6 % (0.0-5.4); HEMATOCRIT 41.2 % (38.4-49.7); HEMOGLOBIN 13.9 g/dL (12.9-16.9); IMMATURE GRAN ABSOLUTE AUTO 0.06 K/uL (0.00-0.23); IMMATURE GRAN PERCENT AUTO 0.5 % (0.0-0.7); LYMPHOCYTES ABSOLUTE AUTO 1.95 K/uL (0.8-3.3); LYMPHOCYTES PERCENT AUTO 17.2 % (11.4-47.7); MEAN CORPUSCULAR HEMOGLOBIN 29.6 pg (31.6-35.5); MEAN CORPUSCULAR HGB CONC 33.7 g/dL (31.6-35.5); MEAN CORPUSCULAR VOLUME 87.8 fL (81.4-99.0); MONOCYTES ABSOLUTE AUTO 0.54 K/uL (0.20-0.90); MONOCYTES PERCENT AUTO 4.8 % (3.3-12.6); NEUTROPHILS PERCENT AUTO 76.6 % (40.0-78.1); PLATELET COUNT,PLT 193 K/uL (130-375); RED BLOOD CELL COUNT 4.69 M/uL (4.14-5.76); WHITE BLOOD CELL COUNT,WBC 11.4 K/uL (3.2-11.0)
[2024-03-11 17:41] LABS: INR 1.3; PROTHROMBIN TIME 12.9 sec (9.2-10.6); PTT,PARTIAL THROMBOPLSTIN TIME 23.9 sec (21.8-27.3)
[2024-03-11 17:43] LABS: A/G RATIO 1.1 (1.2-2.2); ALANINE AMINOTRANSFERASE,ALT 42 U/L (12-78); ALBUMIN 3.9 g/dL (3.4-5.0); ALKALINE PHOSPHATASE 108 U/L (46-116); ANION GAP 11.5 mmol/L (5.0-14.0); ASPARTATE AMNIOTRANSFERASE,AST 37 U/L (15-37); BLOOD UREA NITROGEN,BUN 16 mg/dL (7-18); CALCIUM 9.4 mg/dL (8.5-10.1); CARBON DIOXIDE,CO2 27 mmol/L (21-32); CHLORIDE,CL 102 mmol/L (100-108); EST CRCL DRUG DOSING (CG) 62.75 mL/min; ESTIMATED GFR 76 mL/min (>60); GLUCOSE RANDOM 223 mg/dL (74-106); POTASSIUM,K 4.1 mmol/L (3.6-5.2); PROTEIN TOTAL,TP 7.6 g/dL (6.4-8.2); SODIUM,NA 140 mmol/L (140-148)
[2024-03-11] MEDS: niCARdipine HCl 25 MG in Sodium Chloride 0.9% 240 ML IV SCH (18:17)
[2024-03-11] MEDS: Ketorolac 30 MG/ML SDV IVPUSH ONE (18:22)
[2024-03-11] MEDS: Morphine 2 MG/ML SYRINGE IVPUSH ONE (18:29)
== END 2024-03-11 19:50 ==
LOC: JP.ED 15:49
DX: S06.5XAA Traumatic subdural hemorrhage with loss of consciousness status unknown, initial encounter (principal); E78.00 Pure hypercholesterolemia, unspecified; E11.9 Type 2 diabetes mellitus without complications; Z79.899 Other long term (current) drug therapy; Z79.84 Long term (current) use of oral hypoglycemic drugs; W11.XXXA Fall on and from ladder, initial encounter; Y93.89 Activity, other specified
CPT/HCPCS: 36415; 70450; 71045; 72125; 76377; 80053; 85025; 85610; 85730; 96365; 96375; 99285; J2270; J2405; J7050